=== PATIENT | male | born 1965 | race Caucasian/White ===

== ENCOUNTER 2019-10-19 11:08 | Inpatient (IN) | payer OTHER ==
[2019-10-19 11:59] VITALS: BMI 33.9
--- NOTE | 2019-10-19 13:05 | HP ---
CIWA Score Nausea/Vomitin-Mild Nausea/No Vomiting Muscle Tremors: 2 Anxiety: 1-Mildly Anxious Agitation: 2 Paroxysmal Sweats: 3 Orientation: 1-Uncertain about Date Tacttile Disturbances: 2-Mild Itch/Numbness/Burn Auditory Disturbances: 0-None Visual Disturbances: 1-Very Mild Sensitivity Headache: 5-Severe CIWA-Ar Total Score: 18 - Admission Criteria OASAS Guidelines: Admission for Medically Managed Detox: Requires at least one of the followin. CIWA greater than 12 2. Seizures within the past 24 hours 3. Delirium tremens within the past 24 hours 4. Hallucinations within the past 24 hours 5. Acute intervention needed for co occurring medical disorder 6. Acute intervention needed for co occurring psychiatric disorder 7. Severe withdrawal that cannot be handled at a lower level of care (continued vomiting, continued diarrhea, abnormal vital signs) requiring intravenous medication and/or fluids 8. Admitting History and Physical - Admission Chief Complaint: " I want to stop drinking alcohol and give myself a chance. Alcohol is the drug of choice because I can get it easily." History of Present Illness: 53 year old male with history of alcohol dependence with some withdrawals. He is also abusing Xanax and buys it on the streets. He uses up to 6 mg of Xanax daily and upon attempting to self -detox, he has subsequent seizures. He does admits to hospital for special care but long ago was last one. He denies withdrawal seizures but has tremors immediately upon not drinking. He also has to have eye-buzzle buffer drinks in the mornings. He was referred from [facility] for alcohol detox but also has a benzodiazepine use disorder. He smokes ciggarettes 1/2 PPD. He uses marijuana every day 2-3 blunts daily, last used last night. He is on methadone at 175mg of methadone daily at [facility] MMTP. 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 Endocrine: Yes: Diabetes Mellitus - Past Surgical History Past Surgical History: Yes: Cholecystectomy - Smoking History Smoking history: Current every day smoker Have you smoked in the past 12 months: Yes Aproximately how many cigarettes per day: 10 - Alcohol/Substance Use Hx Alcohol Use: Yes Number of Drinks Daily: 10 - Social History Usual Living Arrangement: Yes: Alone Do you think of yourself as: Straight/Heterosexual ADL: Independent History of Recent Travel: No Admission ROS S - HPI Allergies/Adverse Reactions: Allergies Allergy/AdvReac Type Severity Reaction Status Date / Time No Known Allergies Allergy Verified 10/19/19 11:44 - Ebola screening Have you traveled outside of the country in the last 21 days: No Have you had contact with anyone from an Ebola affected area: No Have you been sick,other than usual withdrawal symptoms: No Do you have a fever: No - Review of Systems Constitutional: Chills, Diaphoresis EENT: reports: No Symptoms Reported Respiratory: reports: No Symptoms reported Cardiac: reports: No Symptoms Reported GI: reports: Nausea, Abdominal cramping : reports: No Symptoms Reported Musculoskeletal: reports: No Symptoms Reported Integumentary: reports: No Symptoms Reported Neuro: reports: No Symptoms reported Endocrine: reports: No Symptoms Reported Hematology: reports: No Symptoms Reported Psychiatric: reports: Judgement Intact, Mood/Affect Appropiate, Orientated x3 Other Systems: Reviewed and Negative Patient History - Patient Medical History Hx Anemia: No Hx Asthma: No Hx Chronic Obstructive Pulmonary Disease (COPD): No Hx Cancer: No Hx Cardiac Disorders: No Hx Congestive Heart Failure: No Hx Hypertension: No Hx Hypercholesterolemia: No Hx Pacemaker: No HX Cerebrovascular Accident: No Hx Seizures: Yes (from Xanax withdrawals) Hx Dementia: No Hx Diabetes: Yes Hx Gastrointestinal Disorders: No Hx Liver Disease: No Hx Genitourinary Disorders: No Hx Sexually Transmitted Disorders: No Hx Renal Disease (ESRD): No Hx Thyroid Disease: No Hx Human Immunodeficiency Virus (HIV): No Hx Hepatitis C: Yes (treated and cured) Hx Depression: Yes Hx Suicide Attempt: No Hx Bipolar Disorder: Yes (no meds) Hx Schizophrenia: No - Patient Surgical History Past Surgical History: Yes Hx Cholecystectomy: Yes - PPD History Previous Implant?: Yes Documented Results: Negative w/o proof Implanted On Prior R Admission?: No Date: 05/13/19 Results: negative PPD to be Administered?: Yes - Smoking Cessation Smoking history: Current every day smoker Have you smoked in the past 12 months: Yes Aproximately how many cigarettes per day: 20 Hx Chewing Tobacco Use: No Initiated information on smoking cessation: Yes 'Breaking Loose' booklet given: 10/19/19 - Substances abused Alprazolam (Xanax) Substance route: Oral Frequency: Daily Amount used: 6-8mg Age of first use: 19 Date of last use: 10/18/19 Alcohol Substance route: Oral Frequency: Daily Amount used: 1 pint of vodka Age of first use: 14 Date of last use: 10/18/19 Marijuana/Hashish Substance route: Smoking Frequency: Daily Amount used: $10 Age of first use: 14 Date of last use: 10/18/19 Admission Physical Exam [facility] - Vital Signs Vital Signs: Vital Signs - 24 hr 10/19/19 11:44 Temperature 98.2 F Pulse Rate 56 L Respiratory 20 Rate Blood Pressure 113/69 - Physical General Appearance: Yes: Mild Distress, Irritable, Sweating, Anxious HEENTM: Yes: EOMI, Hearing grossly Normal, Normal ENT Inspection, Normocephalic , Normal Voice, JACKELIN, Pharynx Normal, Tm's normal Respiratory: Yes: Chest Non-Tender, Lungs Clear, Normal Breath Sounds, No Respiratory Distress, No Accessory Muscle Use Neck: Yes: No masses,lesions,Nodules, Supple, Trachea in good position Breast: Yes: Within Normal Limits Cardiology: Yes: Regular Rhythm, Regular Rate, S1, S2 Abdominal: Yes: Normal Bowel Sounds, Non Tender, Soft, Protuberent Genitourinary: Yes: Within Normal Limits Back: Yes: Normal Inspection Musculoskeletal: Yes: full range of Motion, Gait Steady, Pelvis Stable Extremities: Yes: Normal Capillary Refill, Normal Inspection, Normal Range of Motion, Non-Tender Neurological: Yes: event 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 II-XII NML intact, Fully Oriented, Alert, Motor Strength 5/5, Normal Mood/Affect, Normal Response Integumentary: Yes: Normal Color, Warm Lymphatic: Yes: Within Normal Limits - Diagnostic (1) Alcohol dependence with withdrawal Current Visit: Yes Status: Acute (2) Diabetes Current Visit: Yes Status: Acute (3) Methadone maintenance therapy patient Current Visit: Yes Status: Acute (4) Cannabis use disorder, mild, abuse Current Visit: Yes Status: Acute (5) Severe benzodiazepine use disorder Current Visit: Yes Status: Acute Cleared for Admission [facility] - Detox or Rehab [facility] Level of Care: Medically Managed Detox Regimen/Protocol: Librium Claeared for Rehab Admission: No Screened but not Admitted - Documentation of Visit Screened but not Admitted: No Breathalyzer - Breathalyzer Breathalyzer: 0 (last used yesterday afternoon) Urine Drug Screen - Test Device Lot number: [id number] Expiration date: 05/06/21 - Control Is test valid?: Yes - Results Drug screen NEGATIVE: No Urine drug screen results: THC-Marijuana, MTD-Methadone, BZO-Benzodiazepines Inpatient Rehab Admission - Rehab Decision to Admit Inpatient rehab admission?: No
[2019-10-19] MEDS ORDERED: MELATONIN 5 MG TABLETS PO PRN (13:13)
[2019-10-19] MEDS ORDERED: MAGNESIUM CITRATE 300 ML BOTTLE PO PRN (13:13)
[2019-10-19] MEDS ORDERED: MAG HYDROX/AL HYDROX/SIMETH 30 ML UNIT-DOSE CUP PO PRN (13:13)
[2019-10-19] MEDS ORDERED: METHOCARBAMOL 500 MG TABLET PO PRN (13:13)
[2019-10-19] MEDS ORDERED: IBUPROFEN 400 MG TABLET (FP) PO PRN (13:13)
[2019-10-19] MEDS ORDERED: BISMUTH SUBSALICYLATE 262 MG/15 ML BTL PO PRN (13:13)
[2019-10-19] MEDS ORDERED: MENTHOL/PHENOL 1 EACH UD MM PRN (13:13)
[2019-10-19] MEDS ORDERED: ACETAMINOPHEN 325 MG TABLET (FP) PO PRN ×2 (13:13)
[2019-10-19] MEDS ORDERED: chlordiazePOXIDE HCL 25 MG CAPSULE PO PRN (13:13)
[2019-10-19] MEDS ORDERED: hydrOXYzine PAMOATE 25 MG CAPSULE (FP) PO PRN (13:13)
[2019-10-19] MEDS ORDERED: MAGNESIUM HYDROX 2400MG/30ML ORAL SUSPENSION 30 ML CUP PO PRN (13:13)
--- NOTE | 2019-10-19 15:27 | PN ---
S Progress Note Note: pt states he prefers valium and to d/c librium. The librium does not help. Pt will be placed on a valium detox as per his request.
[2019-10-19] MEDS ORDERED: diazePAM 5 MG TABLET PO ONE (15:45)
[2019-10-19 16:51] LABS: HEMATOCRIT 39.8 % (35.4-49); HEMOGLOBIN 13.7 GM/dL (11.7-16.9); MCH 32.7 pg (25.7-33.7); MCHC 34.5 g/dl (32.0-35.9); MEAN CELL VOLUME 94.6 fl (80-96); MEAN PLT VOLUME 7.8 fl (7.5-11.1); PLATELET COUNT 188 K/MM3 (134-434); RDW 13.3 % (11.9-15.9); WHITE BLOOD COUNT 8.5 K/mm3 (4.0-10.0)
[2019-10-19] MEDS ORDERED: chlordiazePOXIDE HCL 25 MG CAPSULE PO SCH (17:00)
[2019-10-19 17:03] LABS: ALBUMIN 3.7 g/dl (3.4-5.0); BILIRUBIN,TOTAL 0.4 mg/dL (0.2-1); BLOOD UREA NITROGEN 17.4 mg/dL (7-18); CALCIUM 8.9 mg/dL (8.5-10.1); CREATININE 0.9 mg/dL (0.55-1.3); POTASSIUM 4.3 mmol/L (3.5-5.1); TOT PROT 7.7 g/dl (6.4-8.2)
[2019-10-19] MEDS: metFORMIN HCL 500 MG TABLET (FP) PO SCH (17:14)
[2019-10-19] MEDS: diazePAM 5 MG TABLET PO SCH (21:00)
[2019-10-19] MEDS: THIAMINE HCL 100 MG TABLET (FP) PO SCH (21:00)
[2019-10-19] MEDS: traZODone HCL 50 MG TABLET (FP) PO SCH (21:00)
[2019-10-19] MEDS: diazePAM 5 MG TABLET PO PRN (23:25)
[2019-10-20] MEDS: diazePAM 5 MG TABLET PO SCH ×3 (06:04→21:23)
[2019-10-20] MEDS: metFORMIN HCL 500 MG TABLET (FP) PO SCH ×2 (06:22→17:30)
--- NOTE | 2019-10-20 08:05 | CONSULT ---
[facility] Psychiatric Consult - Data Date of interview: 10/20/19 Admission source: [facility] Identifying data: Mr Powell is a 53 years old single maleunemployed with no source of income, homeless seeking detox treatment for alcohol, benzodiazepine and cannabis Substance Abuse History: Reports history of alcohol, xanax and marijuana use. Refer to addiction counselor's summary for further information Medical History: Significant for type 2 diabetes mellitus, history of withdrawal seizure, treatment for hepatitis C anf cholecystectomy in 2014. Smokes cigarettes 1 ppd Psychiatric History: Reports that his first psychiatric contact was in the when he saw an outpatient psychiatrist in [place], diagnosed with anxiety and prescribed Xanax, Seroquel. Claims that after 10 years, he switched to another psychiatrist at [facility] from [id number]. Then he was incarcerated for 8 months and received treatment while in alf. Upon release, he went back to [facility] where he was prescribed Seroquel and he was buy it Xanax off the street. After one year, he was admitted to residential program at [facility] from May 2018 to January 2019 then [facility] residential program where he was for 7 months and discharged in September 2019. Reports he has not had medications for 2 months. 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 [facility] at [address] [place] [address] [phone]. According to pharmacist, Scripts for Gabapentin 300 mg/tid and Trazadone 150 mg/hs wee filled on 08/11/19. Denies previous psychiatric hospitalization or suicidal attempt. At present, patient is very irritable, reports feeling depressed and sleeping poorly. Reports that he used to be taking Gabapentin 600 mg/tid in the past and requests to have Gabapentin at 400 mg/tid Physical/Sexual Abuse/Trauma History: Denies history of abuse as a child or DV relationship as an adult Mental Status Exam - Mental Status Exam Alert and Oriented to: Time, Place, Person Cognitive Function: Fair Patient Appearance: Well Groomed Mood: Depressed, Irritable Affect: Appropriate Speech Pattern: Clear Voice Loudness: Normal Thought Process: Intact, Goal Oriented Thought Disorder: Not Present Hallucinations: Denies Suicidal Ideation: Denies Homicidal Ideation: Denies Insight/Judgement: Poor Sleep: Poorly Appetite: Poor Muscle strength/Tone: Normal Gait/Station: Normal Psychiatric Findings - Problem List (Ducor 1, 2,3) (1) Anxiety disorder Current Visit: Yes Status: Chronic (2) Substance induced mood disorder Current Visit: Yes Status: Acute (3) Substance-induced sleep disorder Current Visit: Yes Status: Acute (4) Alcohol dependence with withdrawal Current Visit: Yes Status: Acute (5) Severe benzodiazepine use disorder Current Visit: Yes Status: Acute (6) Cannabis use disorder, mild, abuse Current Visit: Yes Status: Acute (7) Opioid dependence on agonist therapy Current Visit: Yes Status: Chronic (8) Nicotine dependence Current Visit: Yes Status: Chronic (9) Diabetes mellitus Current Visit: Yes Status: Acute (10) Hepatitis C Current Visit: Yes Status: Resolved (11) Drug withdrawal seizure Current Visit: Yes Status: Resolved (12) History of cholecystectomy Current Visit: Yes Status: Resolved - Initial Treatment Plan Initial Treatment Plan: 1) Continue Trazadone 150 mg po HS ordered by Dr Taylor. 2 ) Start Gabapentin 400 mg po TID. 3) Continue inpatient detoxification
[2019-10-20] MEDS: diazePAM 5 MG TABLET PO PRN ×3 (08:58→22:00)
[2019-10-20] MEDS ORDERED: METHADONE HCL 10 MG TABLET PO ONE (09:14)
[2019-10-20] MEDS ORDERED: METHADONE 160 MG, METHADONE 10 MG, METHADONE 5 MG PO ONE (09:25)
[2019-10-20] MEDS ORDERED: METHADONE HCL 10 MG TABLET ONE (09:30)
[2019-10-20] MEDS ORDERED: METHADONE HCL 40 MG DISPERSABLE TABLET ONE (09:31)
[2019-10-20] MEDS ORDERED: METHADONE HCL 5 MG TABLET ONE (09:32)
[2019-10-20] MEDS: NICOTINE POLACRILEX 4 MG GUM BUC PRN (09:56)
[2019-10-20] MEDS: PRENATAL VITAMINS W/ FOLIC ACID TABLET (FP) PO SCH (10:35)
[2019-10-20] MEDS: NICOTINE 21 MG/24 HOURS TOPICAL PATCH TD SCH (10:38)
--- NOTE | 2019-10-20 12:41 | PN ---
S CIWA - CIWA Score Nausea/Vomitin-Mild Nausea/No Vomiting Muscle Tremors: 2 Anxiety: 2 Agitation: 2 Paroxysmal Sweats: No Perspiration Orientation: 0-Oriented Tacttile Disturbances: 1-Very Mild Itch/Numbness Auditory Disturbances: 0-None Visual Disturbances: 0-None Headache: 2-Mild CIWA-Ar Total Score: 10 S Progress Note (SOAP) Subjective: alert,irritable,anxious,interrupted sleep,tremor,pain in the body Objective: 10/20/19 12:37 Vital Signs Temperature 97.9 F 10/20/19 05:00 Pulse Rate 60 10/20/19 05:00 Respiratory Rate 20 10/20/19 05:00 Blood Pressure 119/73 10/20/19 05:00 O2 Sat by Pulse Oximetry (%) Laboratory Last Values WBC 8.5 K/mm3 (4.0-10.0) 10/19/19 13:10 RBC 4.20 M/mm3 (4.00-5.60) 10/19/19 13:10 Hgb 13.7 GM/dL (11.7-16.9) 10/19/19 13:10 Hct 39.8 % (35.4-49) 10/19/19 13:10 MCV 94.6 fl (80-96) 10/19/19 13:10 MCH 32.7 pg (25.7-33.7) 10/19/19 13:10 MCHC 34.5 g/dl (32.0-35.9) 10/19/19 13:10 RDW 13.3 % (11.9-15.9) 10/19/19 13:10 Plt Count 188 K/MM3 (134-434) 10/19/19 13:10 MPV 7.8 fl (7.5-11.1) 10/19/19 13:10 Sodium 139 mmol/L (136-145) 10/19/19 13:10 Potassium 4.3 mmol/L (3.5-5.1) 10/19/19 13:10 Chloride 104 mmol/L (98-107) 10/19/19 13:10 Carbon Dioxide 32 mmol/L (21-32) 10/19/19 13:10 Anion Gap 3 MMOL/L (8-16) L 10/19/19 13:10 BUN 17.4 mg/dL (7-18) 10/19/19 13:10 Creatinine 0.9 mg/dL (0.55-1.3) 10/19/19 13:10 Est GFR (CKD-EPI)AfAm 113.41 10/19/19 13:10 Est GFR (CKD-EPI)NonAf 97.85 10/19/19 13:10 POC Glucometer 136 UNITS (80-120) 10/20/19 06:08 Random Glucose 84 mg/dL (74-106) 10/19/19 13:10 Calcium 8.9 mg/dL (8.5-10.1) 10/19/19 13:10 Total Bilirubin 0.4 mg/dL (0.2-1) 10/19/19 13:10 AST 152 U/L (15-37) H 10/19/19 13:10 ALT 124 U/L (13-61) H 10/19/19 13:10 Alkaline Phosphatase 90 U/L (45-117) 10/19/19 13:10 Total Protein 7.7 g/dl (6.4-8.2) 10/19/19 13:10 Albumin 3.7 g/dl (3.4-5.0) 10/19/19 13:10 RPR Titer Nonreactive (NONREACTIVE) 10/19/19 13:10 Assessment: 10/20/19 12:38 withdrawal symptom Plan: continue detox valium regimen,continue methadone maintenance 175 mgs po daily on methadone maintenance, elevation of ast,alt to repeat in am
[2019-10-20] MEDS: GABAPENTIN 400 MG CAPSULE PO SCH ×2 (13:12→21:20)
[2019-10-20] MEDS: traZODone HCL 50 MG TABLET (FP) PO SCH (21:20)
[2019-10-20] MEDS: THIAMINE HCL 100 MG TABLET (FP) PO SCH (21:20)
[2019-10-21] MEDS ORDERED: chlordiazePOXIDE HCL 25 MG CAPSULE PO SCH (05:00)
[2019-10-21] MEDS ORDERED: METHADONE HCL 40 MG DISPERSABLE TABLET ONE (05:12)
[2019-10-21] MEDS ORDERED: METHADONE HCL 5 MG TABLET ONE (05:12)
[2019-10-21] MEDS ORDERED: METHADONE HCL 10 MG TABLET ONE (05:12)
[2019-10-21] MEDS ORDERED: METHADONE HCL 40 MG DISPERSABLE TABLET PO SCH (06:00)
[2019-10-21] MEDS: GABAPENTIN 400 MG CAPSULE PO SCH ×3 (07:10→21:22)
[2019-10-21] MEDS: METHADONE 160 MG, METHADONE 10 MG, METHADONE 5 MG PO SCH (07:10)
[2019-10-21] MEDS: diazePAM 5 MG TABLET PO SCH ×2 (07:11→17:39)
[2019-10-21] MEDS: metFORMIN HCL 500 MG TABLET (FP) PO SCH ×2 (07:11→17:40)
[2019-10-21 09:56] LABS: SGOT/AST 68 U/L (15-37); SGPT/ALT 105 U/L (13-61)
[2019-10-21] MEDS: PRENATAL VITAMINS W/ FOLIC ACID TABLET (FP) PO SCH (10:07)
[2019-10-21] MEDS: NICOTINE 21 MG/24 HOURS TOPICAL PATCH TD SCH (10:07)
[2019-10-21] MEDS: diazePAM 5 MG TABLET PO PRN ×3 (10:12→20:44)
[2019-10-21] MEDS: NICOTINE POLACRILEX 4 MG GUM BUC PRN (10:44)
--- NOTE | 2019-10-21 14:37 | PN ---
S CIWA - CIWA Score Nausea/Vomitin Muscle Tremors: 2 Anxiety: 2 Agitation: 2 Paroxysmal Sweats: No Perspiration Orientation: 0-Oriented Tacttile Disturbances: 1-Very Mild Itch/Numbness Auditory Disturbances: 0-None Visual Disturbances: 0-None Headache: 2-Mild CIWA-Ar Total Score: 11 S Progress Note (SOAP) Subjective: alert,irritable,anxious,interrupted sleep,pain in the body Objective: 10/21/19 14:35 Vital Signs Temperature 100.0 F H 10/21/19 10:00 Pulse Rate 59 L 10/21/19 10:00 Respiratory Rate 10/21/19 10:00 Blood Pressure 132/84 10/21/19 10:00 O2 Sat by Pulse Oximetry (%) 10/21/19 14:36 Abnormal Lab Results 10/21/19 08:10 AST 68 H ALT 105 H Assessment: 10/21/19 14:35 Vital Signs Temperature 100.0 F H 10/21/19 10:00 Pulse Rate 59 L 10/21/19 10:00 Respiratory Rate 10/21/19 10:00 Blood Pressure 132/84 10/21/19 10:00 O2 Sat by Pulse Oximetry (%) 10/21/19 14:36 withdrawal symptom Plan: continue detox valium regimen,continue methadone maintenance
[2019-10-21] MEDS ORDERED: traZODone HCL 50 MG TABLET (FP) PO ONE (21:04)
[2019-10-21] MEDS: THIAMINE HCL 100 MG TABLET (FP) PO SCH (21:22)
[2019-10-22] MEDS ORDERED: chlordiazePOXIDE HCL 10 MG CAPSULE PO PRN
[2019-10-22] MEDS ORDERED: METHADONE HCL 40 MG DISPERSABLE TABLET ONE ×5 (04:10→11:20)
[2019-10-22] MEDS ORDERED: METHADONE HCL 10 MG TABLET ONE ×5 (04:10→11:20)
[2019-10-22] MEDS ORDERED: chlordiazePOXIDE HCL 10 MG CAPSULE PO SCH (05:00)
[2019-10-22] MEDS ORDERED: diazePAM 5 MG TABLET PO ONE (06:00)
[2019-10-22] MEDS ORDERED: TRIMETHOBENZAMIDE HCL 200MG/2ML INJ IM PRN (07:26)
[2019-10-22] MEDS: GABAPENTIN 400 MG CAPSULE PO SCH ×2 (07:43→14:40)
[2019-10-22] MEDS: metFORMIN HCL 500 MG TABLET (FP) PO SCH (07:44)
[2019-10-22 09:11] VITALS: BP 144/89; PULSE 82; TEMP 98.3
--- NOTE | 2019-10-22 09:35 | DS ---
[facility] Detox Discharge Summary Admission Date: 10/19/19 Discharge Date: 10/22/19 - History Present History: Alcohol Dependence, Cannabis Dependence, MMTP - Physical Exam Results Vital Signs: Vital Signs Temperature 98.3 F 10/22/19 09:10 Pulse Rate 82 10/22/19 09:10 Respiratory Rate 18 10/22/19 09:10 Blood Pressure 144/89 10/22/19 09:10 O2 Sat by Pulse Oximetry (%) Pertinent Admission Physical Exam Findings: Vital Signs Temperature 98.3 F 10/22/19 09:10 Pulse Rate 82 10/22/19 09:10 Respiratory Rate 18 10/22/19 09:10 Blood Pressure 144/89 10/22/19 09:10 O2 Sat by Pulse Oximetry (%) Laboratory Tests 10/19/19 10/19/19 10/19/19 13:10 13:10 13:10 WBC 8.5 RBC 4.20 Hgb 13.7 Hct 39.8 MCV 94.6 MCH 32.7 MCHC 34.5 RDW 13.3 Plt Count 188 MPV 7.8 Sodium 139 Potassium 4.3 Chloride 104 Carbon Dioxide 32 Anion Gap 3 L BUN 17.4 Creatinine 0.9 Est GFR (CKD-EPI)AfAm 113.41 Est GFR (CKD-EPI)NonAf 97.85 POC Glucometer Random Glucose 84 Calcium 8.9 Total Bilirubin 0.4 AST 152 H ALT 124 H Alkaline Phosphatase 90 Total Protein 7.7 Albumin 3.7 RPR Titer Nonreactive 10/19/19 10/19/19 10/20/19 14:36 17:06 06:08 WBC RBC Hgb Hct MCV MCH MCHC RDW Plt Count MPV Sodium Potassium Chloride Carbon Dioxide Anion Gap BUN Creatinine Est GFR (CKD-EPI)AfAm Est GFR (CKD-EPI)NonAf POC Glucometer 82 164 136 Random Glucose Calcium Total Bilirubin AST ALT Alkaline Phosphatase Total Protein Albumin RPR Titer 10/20/19 10/21/19 10/21/19 16:45 07:09 08:10 WBC RBC Hgb Hct MCV MCH MCHC RDW Plt Count MPV Sodium Potassium Chloride Carbon Dioxide Anion Gap BUN Creatinine Est GFR (CKD-EPI)AfAm Est GFR (CKD-EPI)NonAf POC Glucometer 50 150 Random Glucose Calcium Total Bilirubin AST 68 H ALT 105 H Alkaline Phosphatase Total Protein Albumin RPR Titer 01/15/20 16:27 WBC RBC Hgb Hct MCV MCH MCHC RDW Plt Count MPV Sodium Potassium Chloride Carbon Dioxide Anion Gap BUN Creatinine Est GFR (CKD-EPI)AfAm Est GFR (CKD-EPI)NonAf POC Glucometer 114 Random Glucose Calcium Total Bilirubin AST ALT Alkaline Phosphatase Total Protein Albumin RPR Titer aaox3 ambulating no acute distress - Treatment Hospital Course: Detox Protocol Followed, Detoxed Safely, Responded well, Discharged Condition Good, Rehab Referral Accepted Patient has Accepted a Rehab Referral to: pt referred to inpatient rehab - Medication Discharge Medications: Ambulatory Orders Metformin HCl [Glucophage] 500 mg PO BID 10/19/19 traZODone HCL [Desyrel -] 150 mg PO HS 10/19/19 - Diagnosis (1) Alcohol dependence with withdrawal Current Visit: Yes Status: Chronic Qualifiers: Complication of substance-induced condition: uncomplicated Qualified Code(s ): F10.230 - Alcohol dependence with withdrawal, uncomplicated (2) Cannabis use disorder, mild, abuse Current Visit: Yes Status: Chronic (3) Diabetes Current Visit: Yes Status: Chronic Qualifiers: Diabetes mellitus type: type 2 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 insulin use status Diabetes mellitus complication status : without complication Qualified Code(s): E11.9 - Type 2 diabetes mellitus without complications (4) Methadone maintenance therapy patient Current Visit: Yes Status: Chronic (5) Severe benzodiazepine use disorder Current Visit: Yes Status: Chronic (6) Substance induced mood disorder Current Visit: Yes Status: Acute (7) Substance-induced sleep disorder Current Visit: Yes Status: Acute (8) Anxiety disorder Current Visit: Yes Status: Chronic (9) Nicotine dependence Current Visit: Yes Status: Chronic Qualifiers: Nicotine product type: cigarettes Substance use status: uncomplicated Qualified Code(s): F17.210 - Nicotine dependence, cigarettes, uncomplicated (10) Opioid dependence on agonist therapy Current Visit: Yes Status: Chronic (11) Drug withdrawal seizure Current Visit: Yes Status: Resolved (12) Hepatitis C Current Visit: Yes Status: Resolved Qualifiers: Viral hepatitis chronicity: chronic Hepatic coma status: without hepatic coma Qualified Code(s): B18.2 - Chronic viral hepatitis C (13) History of cholecystectomy Current Visit: Yes Status: Resolved - AMA Did Patient Leave Against Medical Advice: No
[2019-10-22] MEDS: NICOTINE 21 MG/24 HOURS TOPICAL PATCH TD SCH (10:19)
[2019-10-22] MEDS: PRENATAL VITAMINS W/ FOLIC ACID TABLET (FP) PO SCH (10:19)
[2019-10-22] MEDS: diazePAM 5 MG TABLET PO PRN (10:26)
[2019-10-22] MEDS ORDERED: METHADONE HCL 5 MG TABLET ONE (11:20)
[2019-10-22] MEDS: METHADONE 160 MG, METHADONE 10 MG, METHADONE 5 MG PO SCH (11:29)
[2019-10-22] MEDS ORDERED: ONDANSETRON *ODT* 4 MG TABLET SL PRN (13:12)
[2019-10-22] MEDS ORDERED: traZODone HCL 50 MG TABLET (FP) PO SCH (22:00)
[2019-10-23] MEDS ORDERED: chlordiazePOXIDE HCL 10 MG CAPSULE PO SCH (05:00)
[2019-10-24] MEDS ORDERED: chlordiazePOXIDE HCL 10 MG CAPSULE PO ONE (05:00)
== END 2019-10-22 15:52 | disposition other institution (70) | DRG 773 ==
LOC: YASAS 11:08 → Y6N 14:42
PROVIDERS: ADMIT Allergy & Immunology; ATTEND Allergy & Immunology
PROC: HZ2ZZZZ Detoxification Services for Substance Abuse Treatment (ICD-10-PCS; principal; 2019-10-19)
DX: F10.230 Alcohol dependence with withdrawal, uncomplicated (principal); F11.20 Opioid dependence, uncomplicated; F13.20 Sedative, hypnotic or anxiolytic dependence, uncomplicated; F12.20 Cannabis dependence, uncomplicated; F17.210 Nicotine dependence, cigarettes, uncomplicated; F19.282 Other psychoactive substance dependence with psychoactive substance-induced sleep disorder; F19.24 Other psychoactive substance dependence with psychoactive substance-induced mood disorder; F41.9 Anxiety disorder, unspecified; F31.9 Bipolar disorder, unspecified; G47.00 Insomnia, unspecified; E11.9 Type 2 diabetes mellitus without complications; Z79.4 Long term (current) use of insulin; B18.2 Chronic viral hepatitis C; Z86.69 Personal history of other diseases of the nervous system and sense organs; Z90.49 Acquired absence of other specified parts of digestive tract
CPT/HCPCS: 36415; 80053; 82962; 84450; 84460; 85027; 86593; Q0162